=== PATIENT | female | born 2000 | race Caucasian/White ===

== ENCOUNTER 2018-05-14 11:41 | Emergency (ER) | payer OTHER ==
[~2018-05-14] VITALS: Ht 170.2 cm; Wt 49.4 kg
--- NOTE | 2018-05-14 12:20 | PHYS DOC ---
Past History Past Medical History: No Pertinent History, Other Past Surgical History: No Surgical History, Other Smoking: Non-smoker (uses electrical cigarettes) Alcohol Use: None Drug Use: None Adult General Chief Complaint Chief Complaint: DIZZY/LIGHT HEADED [facility] 17-year-old female patient without medical problem states she had left ear piercing one week ago without any problem. Patient complaining of gradual onset of dizziness as a constant problem that getting worse with moving her head and standing up for the last 3 days without nausea, blurred vision, headache, focal neuro deficit, history of dizziness. Patient states she was seen by her primary care physician 3 days ago and has pending blood test results. Patient denies and sexual activity and using drugs and alcohol. Review of Systems Review of Systems Constitutional: Denies fever or chills [] Eyes: Denies change in visual acuity, redness, or eye pain [] HENT: Denies nasal congestion or sore throat [] Respiratory: Denies cough or shortness of breath [] Cardiovascular: No additional information not addressed in HPI [] GI: Denies abdominal pain, nausea, vomiting, bloody stools or diarrhea [] : Denies dysuria or hematuria [] Musculoskeletal: Denies back pain or joint pain [] Integument: Denies rash or skin lesions [] Neurologic: Reports dizziness, denies headache, focal weakness or sensory changes [] Endocrine: Denies polyuria or polydipsia [] All other systems were reviewed and found to be within normal limits, except as documented in this note. Allergies Allergies Allergies Coded Allergies Type Severity Reaction Last Updated Verified No Known Drug Allergies 03/28/16 No Physical Exam Physical Exam Constitutional: Well developed, well nourished, mild distress, non-toxic appearance. [] HENT: Normocephalic, atraumatic, bilateral external ears normal, oropharynx moist, no oral exudates, nose normal, left ear piercing without sign of infection or abnormality. [] Eyes: PERRLA, EOMI, conjunctiva normal, no discharge. [] Neck: Normal range of motion, no tenderness, supple, no stridor. [] Cardiovascular:Heart rate regular rhythm, no murmur [] Lungs & Thorax: Bilateral breath sounds clear to auscultation [] Abdomen: Bowel sounds normal, soft, no tenderness, no masses, no pulsatile masses. [] Skin: Warm, dry, no erythema, no rash. [] Back: No tenderness, no CVA tenderness. [] Extremities: No tenderness, no cyanosis, no clubbing, ROM intact, no edema. [] Neurologic: Alert and oriented X 3, normal motor function, normal sensory function, no focal deficits noted. [] Psychologic: Affect normal, judgement normal, mood normal. [] Current Patient Data Vital Signs Vital Signs Date Time Temp Pulse Resp B/P (MAP) Pulse Ox O2 Delivery O2 Flow Rate FiO2 05/14/18 11:57 98.2 103 18 98 Room Air EKG EKG []EKG interpreted by me. EKG at 1240 showed normal sinus rhythm at rate of 72 without abnormal finding. Radiology/Procedures Radiology/Procedures [][place] [address] IMAGING REPORT Signed PATIENT: RIVERA CLEMENTS ACCOUNT: [id number] : 2000 LOCATION: ER AGE: 17 SEX: F EXAM STATUS: REG ER ORD. PHYSICIAN: AICHA BAEZ MD REASON: dizziness PROCEDURE: CT HEAD WO CONTRAST CT of the head without contrast, 05/14/2018: HISTORY: Dizziness The ventricles are within normal limits in size. There is no shift of the midline structures. There is no evidence of acute intracranial hemorrhage or mass effect. IMPRESSION: No acute intracranial abnormality is detected. Electronically signed by: Antonio Graves MD (05/14/2018 12:42 PM) [facility] DICTATED AND SIGNED BY: ANTONIO GRAVES MD DATE: 05/14/18 1241 CC: AICHA BAEZ MD; DESTINEY SPEARS ~ Course & Med Decision Making Course & Med Decision Making Pertinent Labs and Imaging studies reviewed. (See chart for details) Evaluation of patient in ER showed 17-year-old female patient with complaining of dizziness for 3 days that getting worse with changing the position. Patient had unremarkable physical exam, orthostatic vitals, CT head and EKG and labs and felt better with IV fluid in ER. She instructed to increase fluid intake follow-up with her primary care physician as needed. Dragon Disclaimer Dragon Disclaimer This electronic medical record was generated, in whole or in part, using a voice recognition dictation system. Departure Departure: Impression: Primary Impression: Dizziness, nonspecific Disposition: HOME, SELF-CARE (At 1345) Condition: IMPROVED Referrals: DESTINEY SPEARS (PCP) Patient Instructions: Dehydration, Adult, Dizziness Additional Instructions: Drink plenty of liquids Follow-up with your primary care physician in 3-5 days Return to ER if not getting better AICHA BAEZ MD May 14, 2018 12:20
[2018-05-14 12:31] LABS: BASO % 1 % (0-3); EOS # 0.1 x10^3/uL (0.0-0.7); EOS % 1 % (0-3); HEMATOCRIT 38.3 % (36.0-47.0); LYMPH # 1.3 x10^3/uL (1.0-4.8); LYMPH % 18 % (24-48); MEAN CORPUSCULAR HEMOGLOBIN 32 pg (25-35); MEAN CORPUSCULAR HGB CONC 34 g/dL (31-37); MEAN CORPUSCULAR VOLUME 93 fL (79-100); MONO # 0.4 x10^3/uL (0.0-1.1); MONO % 5 % (0-9); NEUT # 5.4 x10^3uL (1.8-7.7); NEUT % 75 % (31-73); PLATELET COUNT 209 x10^3/uL (140-400); RED BLOOD COUNT 4.13 x10^6/uL (3.50-5.40); RED CELL DISTRIBUTION WIDTH 13.7 % (11.5-14.5); WHITE BLOOD COUNT 7.1 x10^3/uL (4.0-11.0)
[2018-05-14 12:44] LABS: ALBUMIN 3.9 g/dL (3.4-5.0); ALBUMIN/GLOBULIN RATIO 1.2 (1.0-1.7); CALCIUM 8.8 mg/dL (8.5-10.1); CREATININE 0.8 mg/dL (0.6-1.0); GFR 92.4; POTASSIUM 3.6 mmol/L (3.5-5.1); TOTAL BILIRUBIN 0.4 mg/dL (0.2-1.0); TOTAL PROTEIN 7.2 g/dL (6.4-8.2)
--- NOTE | 2018-05-14 12:45 | EKG ---
[address] [address] Test Date: 2018-05-14 Test Time: 12:40:05 Pat Name: RIVERA CLEMENTS Department: Room: Gender: F Equipment Hire Manager: JESS : 2000 Requested By: AICHA BAEZ Order Number: [id number] Reading MD: León Mesa Measurements Intervals [place] Rate: 72 P: 48 HI: 142 QRS: 66 QRSD: 74 T: 64 QT: 354 QTc: 389 Interpretive Statements SINUS RHYTHM NORMAL ECG RI6.01 No previous ECG available for comparison Electronically Signed On 05-17-2018 16:58:29 CDT by León Mesa
--- NOTE | 2018-05-14 12:46 | RAD ---
CT of the head without contrast, 05/14/2018: HISTORY: Dizziness The ventricles are within normal limits in size. There is no shift of the midline structures. There is no evidence of acute intracranial hemorrhage or mass effect. IMPRESSION: No acute intracranial abnormality is detected. Electronically signed by: Antonio Graves MD (05/14/2018 12:42 PM) [facility]
[2018-05-14 13:09] VITALS: BP 104/61
[2018-05-14 13:13] LABS: CLARITY,URINE CLEAR; COLOR,URINE YELLOW
[2018-05-14 13:14] LABS: BACTERIA,URINE 0 /HPF (0-FEW); BILIRUBIN,URINE NEG (NEG); GLUCOSE,URINE NEG (NEG); NITRITE,URINE NEG (NEG); RBC,URINE 0 /HPF (0-2); SQUAMOUS EPITHELIAL CELL,UR FEW /LPF; UROBILINOGEN,URINE 0.2 mg/dL (0.2 mg/dL); WBC,URINE 0 /HPF (0-4)
== END 2018-05-14 13:51 | disposition home or self-care (01) ==
LOC: ER 11:41
DX: R42 Dizziness and giddiness (principal); F17.200 Nicotine dependence, unspecified, uncomplicated
CPT/HCPCS: 36415; 70450; 80053; 81001; 81025; 84484; 85025; 93005; 99285-25

== ENCOUNTER → 2018-06-03 | Outpatient (CLI) | payer OTHER ==
[2018-05-14 13:09] VITALS: BP 104/61
--- NOTE | 2018-06-03 17:06 | RAD ---
Examination: Ultrasound thyroid HISTORY: History of elevated thyroid function tests COMPARISON: None available FINDINGS: The right lobe of the thyroid gland measures 5.5 x 1.4 x 1.3 cm. The left lobe of thyroid gland measures 4.3 x 1.4 x 1.0 cm. The isthmus measures 2.9 mm in AP dimension. 3 small nodules identified in the right lobe of the thyroid gland with the largest measuring 1.3 cm. IMPRESSION: 3 small nodules identified in the right lobe of the thyroid gland with the largest being 1.3 cm. Follow-up ultrasound is recommended in 6 months. Electronically signed by: Jairon Ballard MD (06/03/2018 5:03 PM) [id number]
== END | disposition home or self-care (01) ==
LOC: US 09:49
PROVIDERS: ATTEND Physician Assistant Medical
DX: E04.2 Nontoxic multinodular goiter (principal); F17.200 Nicotine dependence, unspecified, uncomplicated
CPT/HCPCS: 76536

== ENCOUNTER 2020-03-28 22:02 | Emergency (ER) | payer OTHER ==
[~2020-03-28] VITALS: Ht 167.6 cm; Wt 55.9 kg
[2020-03-28] MEDS ORDERED: METOCLOPRAMIDE HCL 10 MG/2 ML VIAL. IVP ONE (22:30)
[2020-03-28] MEDS ORDERED: IV NORMAL SALINE 1,000ML 1,000 ML IV ONE (22:30)
[2020-03-28] MEDS ORDERED: diphenhydrAMINE 50 MG/ML VIAL IVP ONE (22:30)
--- NOTE | 2020-03-28 22:32 | PHYS DOC ---
Past History Past Medical History: No Pertinent History, Other Past Surgical History: No Surgical History, Other Smoking: Non-smoker Alcohol Use: None Drug Use: None General Adult EDM: Chief Complaint: HEADACHE HPI: HPI: Patient is a 19 year old female who presents for evaluation of a moderate right- sided headache. She also has nausea. Symptoms began about 8:30 PM tonight. She took ibuprofen at home with minimal improvement of symptoms. She also has a lot of light sensitivity. Patient has a history of occasional headaches but not usually this severe. There is no reported fevers and chills nor neck pain. Patient appears uncomfortable but is nontoxic appearing. There is no focal deficits or lateralizing signs. No reported vision changes [] Review of Systems: Review of Systems: Constitutional: Denies fever or chills Eyes: Denies change in visual acuity HENT: Denies nasal congestion or sore throat Respiratory: Denies cough or shortness of breath Cardiovascular: Denies chest pain or edema GI: Denies abdominal pain, has nausea, no vomiting, no bloody stools or diarrhea : Denies dysuria Musculoskeletal: Denies back pain or joint pain Integument: Denies rash Neurologic: right sided headache, no focal weakness or sensory changes Endocrine: Denies polyuria or polydipsia Lymphatic: Denies swollen glands Psychiatric: Denies depression or anxiety Heart Score: Risk Factors: Risk Factors: DM, Current or recent (<one month) smoker, HTN, HLP, family history of CAD, obesity. Risk Scores: Score 0 - 3: 2.5% MACE over next 6 weeks - Discharge Home Score 4 - 6: 20.3% MACE over next 6 weeks - Admit for Clinical Observation Score 7 - 10: 72.7% MACE over next 6 weeks - Early Invasive Strategies Current Medications: Current Meds: Current Medications Medications (Trade) Dose Ordered Sig/Maria Alejandra Start Time Stop Time Status Last Admin Dose Admin Diphenhydramine HCl (Benadryl) 25 mg 1X ONCE 03/28/20 22:30 03/28/20 22:31 Metoclopramide HCl (Reglan Vial) 10 mg 1X ONCE 03/28/20 22:30 03/28/20 22:31 Sodium Chloride 1,000 ml @ 1,000 mls/hr 1X ONCE 03/28/20 22:30 03/28/20 23:29 Allergies: Allergies: Allergies Coded Allergies Type Severity Reaction Last Updated Verified No Known Drug Allergies 03/28/16 No Physical Exam: PE: Constitutional: Well developed, well nourished, moderate distress, non-toxic appearance. [] HENT: Normocephalic, atraumatic, bilateral external ears normal, oropharynx moist, no oral exudates, nose normal. [] Eyes: PERRL, EOMI, conjunctiva normal, no discharge. [] Neck: Normal range of motion, no tenderness, supple, no stridor. [] Cardiovascular:Heart rate regular rhythm, no murmur [] Lungs & Thorax: Bilateral breath sounds clear to auscultation [] Abdomen: Bowel sounds normal, soft, no tenderness, no masses, no pulsatile masses. [] Skin: Warm, dry, no erythema, no rash. [] Back: No tenderness, no CVA tenderness. [] Extremities: No tenderness, no cyanosis, no clubbing, ROM intact, no edema. [] Neurologic: Alert and oriented X 3, normal motor function, normal sensory function, no focal deficits noted. [] Psychologic: Affect normal, judgement normal, anxoius mood. [] EKG: EKG: [] Radiology/Procedures: Radiology/Procedures: [place] [address] IMAGING REPORT Signed PATIENT: RIVERA CLEMENTS ACCOUNT: [id number] : 2000 LOCATION: ER AGE: 19 SEX: F EXAM STATUS: REG ER ORD. PHYSICIAN: ARNOLD GRAHAM DO REASON: Severe headache PROCEDURE: CT HEAD WO CONTRAST STUDY: CT head without contrast INDICATION: Severe headache. COMPARISON: 05/14/2018 TECHNIQUE: Axial CT imaging through the head without the use of intravenous contrast. Sagittal and coronal reformats were obtained. One or more of the following individualized dose reduction techniques were utilized for this examination: 1. Automated exposure control 2. Adjustment of the mA and/or kV according to patient size 3. Use of iterative reconstruction technique. FINDINGS: No acute intracranial hemorrhage. No mass effect, midline shift or hydrocephalus. Davis-white matter differentiation is maintained. Unremarkable calvarium. No layering fluid seen within the visualized paranasal sinuses. Unremarkable mastoid air cells and middle ears. IMPRESSION: Unremarkable head CT. Electronically signed by: ALEXIA KEENAN MD (03/28/2020 11:28 PM) [id number] DICTATED AND SIGNED BY: ALEXIA KEENAN MD DATE: 03/28/20 2328 CC: DESTINEY SPEARS; ARNOLD GRAHAM DO ~ [] Course & Med Decision Making: Course & Med Decision Making Pertinent Labs and Imaging studies reviewed. (See chart for details) 2315 stable, states her headache is greatly improved at this time. Patient feeling better. Labs are normal and stable. CT scan head added for evaluation since this was an unusually worse headache. CRP and sed rate is also normal. Doubt meningitis clinically or based on lab work at this time 2338 stable, CAT scan results now known and is negative. Patient ready for discharge. Patient requesting work note [] Dragon Disclaimer: Dragon Disclaimer: This electronic medical record was generated, in whole or in part, using a voice recognition dictation system. Departure Departure: Impression: Primary Impression: Acute headache Disposition: 01 HOME, SELF-CARE Condition: STABLE Referrals: DESTINEY SPEARS (PCP) Patient Instructions: General Headache Without Cause Additional Instructions: Drink plenty fluids, rest, medication as directed, return if worsen, call and see your doctor right away and follow-up Scripts Ondansetron Hcl (ZOFRAN) 4 Mg Tablet 1 TAB PO PRN Q6HRS PRN for NAUSEA, #8 TAB Prov: ARNOLD GRAHAM DO 03/28/20 ARNOLD GRAHAM DO Mar 28, 2020 22:32
[2020-03-28 22:50] LABS: U PREG PATIENT NEGATIVE (NEG)
[2020-03-28 22:50] LABS: BASO # 0.1 x10^3/uL (0.0-0.2); BASO % 1 % (0-3); EOS # 0.2 x10^3/uL (0.0-0.7); EOS % 4 % (0-3); HEMATOCRIT 40.4 % (36.0-47.0); HEMOGLOBIN 13.6 g/dL (12.0-15.5); LYMPH # 2.5 x10^3/uL (1.0-4.8); LYMPH % 48 % (24-48); MEAN CORPUSCULAR HEMOGLOBIN 33 pg (25-35); MEAN CORPUSCULAR HGB CONC 34 g/dL (31-37); MEAN CORPUSCULAR VOLUME 98 fL (79-100); MONO # 0.3 x10^3/uL (0.0-1.1); MONO % 6 % (0-9); NEUT # 2.2 x10^3uL (1.8-7.7); NEUT % 42 % (31-73); PLATELET COUNT 288 x10^3/uL (140-400); RED BLOOD COUNT 4.11 x10^6/uL (3.50-5.40); RED CELL DISTRIBUTION WIDTH 12.6 % (11.5-14.5); WHITE BLOOD COUNT 5.2 x10^3/uL (4.0-11.0)
[2020-03-28 22:55] LABS: ANION GAP 11 (6-14); BLOOD UREA NITROGEN 8 mg/dL (7-20); BUN/CREATININE RATIO 10 (6-20); CARBON DIOXIDE 29 mmol/L (21-32); CHLORIDE 105 mmol/L (98-107); CREATININE 0.8 mg/dL (0.6-1.0); GFR 90.5; GLUCOSE 89 mg/dL (70-99); POTASSIUM 3.6 mmol/L (3.5-5.1); SODIUM 145 mmol/L (136-145)
[2020-03-28 23:01] LABS: ALBUMIN 4.1 g/dL (3.4-5.0); ALBUMIN/GLOBULIN RATIO 1.1 (1.0-1.7); ALK PHOS 55 U/L (46-116); ALT (SGPT) 24 U/L (14-59); AST (SGOT) 25 U/L (15-37); TOTAL BILIRUBIN 0.2 mg/dL (0.2-1.0); TOTAL PROTEIN 7.7 g/dL (6.4-8.2)
[2020-03-28 23:02] LABS: C REACTIVE PROTEIN < 0.5 mg/L (0-3.3)
--- NOTE | 2020-03-28 23:31 | RAD ---
STUDY: CT head without contrast INDICATION: Severe headache. COMPARISON: 05/14/2018 TECHNIQUE: Axial CT imaging through the head without the use of intravenous contrast. Sagittal and coronal reformats were obtained. One or more of the following individualized dose reduction techniques were utilized for this examination: 1. Automated exposure control 2. Adjustment of the mA and/or kV according to patient size 3. Use of iterative reconstruction technique. FINDINGS: No acute intracranial hemorrhage. No mass effect, midline shift or hydrocephalus. Davis-white matter differentiation is maintained. Unremarkable calvarium. No layering fluid seen within the visualized paranasal sinuses. Unremarkable mastoid air cells and middle ears. IMPRESSION: Unremarkable head CT. Electronically signed by: ALEXIA KEENAN MD (03/28/2020 11:28 PM) [id number]
[2020-03-28] MEDS ORDERED: ONDA4TAB7 PO (23:42)
[2020-03-28] MEDS ORDERED: KETOROLAC 15 MG/ML VIAL. IVP ONE (23:45)
[2020-03-28] MEDS ORDERED: KETOROLAC 15 MG/ML VIAL. ONE (23:50)
[2020-03-29] VITALS: BP 164/68
== END 2020-03-28 23:50 | disposition home or self-care (01) ==
LOC: ER 22:02
DX: R51 Headache (principal); R11.0 Nausea
CPT/HCPCS: 36415; 70450; 80053; 81025; 85025; 86140; 96374; 96375; 99284; J1200; J1885; J2765; J7030